=== PATIENT | male | born 1950 | race Two or more races ===

== ENCOUNTER 2020-10-19 09:34 | Inpatient (IN) | payer OTHER ==
[~2020-10-19] VITALS: Ht 177.8 cm
[2020-10-19] MEDS ORDERED: LIPITOR40 MG (10:07)
[2020-10-19] MEDS ORDERED: PLAVIX75 MG (10:07)
[2020-10-19] MEDS ORDERED: AVAPRO150 MG (10:07)
--- NOTE | 2020-10-19 10:08 | NUR ---
SE RECIBE PACIENTE MASCULINO ALERTA Y ORIENTADO EN LAS KATHRINE ESFERAS. PACIENTE REFIERE DESDE JERMAINE COMENZO CON SANGRADO AL MOMENTO DE EVACUAR Y HOY CONTINUA CON EL SANGRADO. PACIENTE CON HISTORIAL DE DIVERTICULITIS Y PACIENTE DEL DR. BAZZI. SE MIDEN SIGNOS VITALES Y SE UBICA EN OBSERVACION.
--- NOTE | 2020-10-19 11:33 | NUR ---
SE RECIBE PACIENTE ALERTA Y ORIENTADO EN TIEMPO LUGAR Y PERSONA. SE ORIENTA SOBRE TRATAMIENTO ORDENADO POR DR. WAITE EL MISMO VERBALIZA ENTENDER. SE COLECTAN MUESTRAS ORDENADAS, SE COLOCA VENOPUNCION PATENTE ALETHEA DE ERITEMA Y EDEMA, Y SE CONECTA TERAPIA DE IVF'S. SE HACE ENTREGA DE CONTRASTE Y SE ORIENTA SOBRE FORMA CORRECTA DE INGERIRLO, PTE ALETHEA DE DUDAS AL MOMENTO.
--- NOTE | 2020-10-19 17:27 | NUR ---
SE LLAMA A BANCO DE ADRIANA PARA NOTIFICAR TUBOS PILOTOS PENDIENTES. SE NOTIFICA A MR KAVITHA.
[2020-10-20] MEDS ORDERED: MONTELUKAST SOD10 MG (10:32)
== END 2020-10-25 14:56 | disposition home or self-care (01) | DRG 379 ==
LOC: ER 09:34 → SURH 18:09
PROVIDERS: ADMIT Internal Medicine; ATTEND Internal Medicine
PROC: 0DJD8ZZ Inspection of Lower Intestinal Tract, Via Natural or Artificial Opening Endoscopic (ICD-10-PCS; principal; 2020-10-22)
PROC: 0DJ08ZZ Inspection of Upper Intestinal Tract, Via Natural or Artificial Opening Endoscopic (ICD-10-PCS; 2020-10-22)
PROC: 30233N1 Transfusion of Nonautologous Red Blood Cells into Peripheral Vein, Percutaneous Approach (ICD-10-PCS; 2020-10-22)
DX: K57.31 Diverticulosis of large intestine without perforation or abscess with bleeding (principal); D64.9 Anemia, unspecified; I10 Essential (primary) hypertension; K59.00 Constipation, unspecified; E86.0 Dehydration; K44.9 Diaphragmatic hernia without obstruction or gangrene; K64.1 Second degree hemorrhoids; Z20.822 Contact with and (suspected) exposure to COVID-19; Z79.01 Long term (current) use of anticoagulants